=== PATIENT | female | born 1975 | race Caucasian/White ===

== ENCOUNTER 2022-06-08 13:56 | Emergency (ER) | payer OTHER ==
[2022-06-08] MEDS ORDERED: IBUPROFEN800 MG PO (16:21)
[2022-06-08] MEDS ORDERED: CYCLOBENZAPRINE10 MG PO (16:21)
== END 2022-06-08 16:26 | disposition home or self-care (01) ==
LOC: ER1 13:56
DX: S46.912A Strain of unspecified muscle, fascia and tendon at shoulder and upper arm level, left arm, initial encounter (principal); F17.210 Nicotine dependence, cigarettes, uncomplicated; Z91.040 Latex allergy status; V43.52XA Car driver injured in collision with other type car in traffic accident, initial encounter
CPT/HCPCS: 70450; 71046; 73030; 73502; 99284